=== PATIENT | female | born 1970 | race Caucasian/White ===

== ENCOUNTER → 2016-12-26 | Outpatient (CLI) | payer BC ==
[~2016-12-26] MED LIST: SERT-234 PO
[2016-12-26 13:40] VITALS: BP 94/57; PULSE 65; TEMP 36.8; O2SAT 95
--- NOTE | 2016-12-26 14:33 | Radiation Oncology Follow-Up ---
Radiation Oncology Follow-Up Date of Visit Dec 26, 2016. (Juana Lopez PA-C) Radiation Completion Date finished 07-19-2015 (Juana Lopez PA-C) Diagnosis (1) Leiomyoma of cervix Status: Resolved Onset Date: 04/05/2015 Stage: l Permanent Comment: Cervix, leiomyosarcoma, FIGO IB Abnormal Pap smear 03/17/2015 biopsy revealing leiomyoma with atypia 04/05/2015 biopsy revealing leiomyosarcoma 04/14/2015 status post total abdominal hysterectomy bilateral salpingo- oophorectomy Leiomyosarcoma of cervix only Status post completion of radiation therapy 07/19/2015 received 5040 cGy Last Edited By: Juana Lopez on Dec 28, 2016 08:22 (Juana Lopez PA-C) History of Present Illness Ms. Veloz is a 44 year old post-menopausal female who recently was found to have an abnormal pap smear and was evaluated by Dr. Mendieta. Dr. Mendieta performed a gynecological examination and found a stable left lateral smooth mass described as a polyp. This lesion was biopsied on the same day, 03/17/2015, which revealed a mitotically active leiomyoma with focal atypia. The patient was referred to Dr. Souza who evaluated the patient on 04/05/2015 and, on examination, found "mass is firm, plastic like in texture and irregular. The cervix itself is pushed posteriorly by the mass arising from the anterior ectocervix." Dr. Souza repeated a biopsy that day which revealed a leiomyosarcoma. Thepatient had a CT Abdo/Pelvis on 04/08/2015 revealed a 2.7 cm suspected cervical mass but no evidence of lymph node involvement or metastatic disease. The patient then underwent a total abdominal hysterectomy and bilateral salpingooophorectomy on 04/14/2015 which revealed leiomyosarcoma involving the cervix only. The vaginal cuff margin was negative and the radial margin adjacent to the lower uterine segment was 0.6 mm. The tumor was also noted to have lymphovascular space invasion. We are now seeing her in consultation for discussion of adjuvant radiation therapy. After reviewing the literature, we were unable to find any substantial data for management of cervical leiomyosarcomas. We did extrapolate data both from cervical cancer and endometrial sarcomas to provide the our recommendations to the patient. Based on the close radial margin, the aggressiveness of her malignance and presence of LVSI, we recommended adjuvant pelvic radiation therapy only. She completed radiation therapy in July 2015. (Juana Lopez PA-C) Interim History His been doing well over the past 6 months. She denies any change in urination. There is no change in bowel habits. She denies any vaginal discharge or bleeding. She does note that there is shortening of the vagina. This is noted while having intercourse. She denies pain with intercourse. She did see Dr. Mendieta and had a Pap smear in June that was normal. She has had follow-up examinations by Dr. Souza. She had previously had a CT scan of the chest which recommended a 6 month follow-up. That was performed in August. This showed overall there was no significant change compared to the prior study. Multiple scattered subcentimeter pulmonary nodules remain stable. These measured up to 3 mm in size. These are unlikely to represent metastatic disease given the stability and location. However continue chest CT follow-up is recommended. (Juana Lopez PA-C) Allergies Coded Allergies: No Known Allergies (Verified , 03/22/15) Home Medications Scheduled Sertraline (Zoloft), 100 MG PO QAM Review of Systems Gastrointestinal: Symptoms: WNL Oral: Symptoms: No Problems Respiratory: Symptoms: WNL Urinary: Symptoms: WNL Skin: Symptoms: No Problems Other Skin Symptoms: " dry " (Juana Lopez PA-C) Physical Exam Vital Signs Date Time Temp Pulse Resp B/P Pulse Ox O2 Delivery O2 Flow Rate FiO2 12/26/16 13:40 36.8 65 16 94/57 95 Pain: Side: Bilateral Patient Pain Scale: 0 - 10 Initial Pain Intensity: 0.0 General Appearance: no apparent distress Eyes: normal inspection, EOMI ENT: normal ENT inspection, hearing grossly normal Respiratory/Chest: lungs clear, no respiratory distress, no accessory muscle use Cardiovascular: regular rate, rhythm, no gallop, no murmur Abdomen: non tender, soft, no organomegaly Genitourinary - Female: Pelvic examination performed by Dr. Salinas. There is normal external genitalia. She has foreshortening of the vagina. It is no vaginal discharge or irritation. No telangiectasia. There were no palpable masses on bimanual examination. Extremities: no pedal edema Neurologic/Psychiatric: alert, normal mood/affect Skin: warm/dry Lymphatic: no adenopathy (Juana Lopez PA-C) Laboratory Studies Name: JULES VELOZ Age/Sex: 45/F Location: [facility] MR#: [id number] : 1970 Rm/Bed Physician: Anne Mendieta M.D. Case: [id number] Received 06/15/16 Specimen Date 06/14/16 Specimen: CERVIX/ENDOCERVIX THIN PREP LMP HYSTER GYNECOLOGICAL RESULTS DIAGNOSIS: Negative for intraepithelial Lesion or Malignancy Reactive cellular changes associated with: Inflammation (includes typical repair) ADEQUACY OF THE SPECIMEN: Satisfactory for evaluation AUTOMATED EXAMINATION: This specimen was successfully imaged by the [employer], [place], [facility]. COPIES TO Genesis Kimbrough J Frederick, M.D. Signed <signature on file> 06/16/[address] <signature on file> 05/26 Sarath Kaur M.D. (Juana Lopez PA-C) Additional Studies CHEST CT WITH CONTRAST CT DOSE: 219.05 mGycm HISTORY: Follow-up pulmonary nodules. Cervical cancer. TECHNIQUE: Multiaxial CT images of the chest were performed following the intravenous administration of contrast. COMPARISON: Chest CT 02/28/2016. FINDINGS: An 8 mm irregular density within the right lung apex on image 31 remains unchanged. This likely represents an area of scarring. No significant change in the multiple scattered subpleural nodules seen throughout the lungs. These measure up to 3 mm in size. No new or suspicious nodules identified. No pneumothorax. No pleural effusions. The central airways are patent. No suspicious lytic or blastic osseous lesions. The central pulmonary arteries are patent. No mediastinal or hilar lymphadenopathy. The visualized liver, spleen, and adrenal glands are unremarkable. IMPRESSION: 1. Overall, no significant change compared to the prior study. 2. Multiple scattered subcentimeter pulmonary nodules remain stable. These measure up to 3 mm in size. These are unlikely to represent metastatic disease given the stability and location. However, continued chest CT follow-up is recommended. Electronically signed by: Sukhwinder Contreras M.D. 08/18/2016 10:49 AM (Juana Lopez PA-C) Assessment & Plan Plan: Patient was seen and examined by Dr. Salinas. A continued regular follow- up with Dr. Mendieta and Dr. Souza. The recheck CT scans of the chest have been scheduled through Dr. Souza's office. We asked her to return to our office in 1 year. She may call if she has any questions or concerns. (Juana Lopez PA-C) I agree with note created by Juana Lopez PA-C. I reviewed the patient's chart and information with her. I have examined and evaluated the patient. I reviewed relevant clinical information and answered the patient's and/or family' s questions. (Veeral. Salinas MD) Total Time In Follow-Up I spent 20 minutes speaking to the patient about performing examination. I spent 15 minutes reviewing information and completing this note. (Juana Lopez PA-C) I spent 15 minutes examining and counseling the patient. (Veeral. Salinas MD) Copy To Genesis Kimbrough; Anne Mnedieta M.D.; Alex Souza M.D.
== END | disposition home or self-care (01) ==
LOC: C.ONC 13:24
PROVIDERS: ATTEND Physician Assistant Medical
DX: Z08 Encounter for follow-up examination after completed treatment for malignant neoplasm (principal); Z92.3 Personal history of irradiation; Z85.41 Personal history of malignant neoplasm of cervix uteri

== ENCOUNTER → 2017-01-02 | Outpatient (CLI) | payer BC ==
--- NOTE | 2017-01-03 14:34 | MAMMOGRAPHY REPORT ---
BILATERAL DIGITAL SCREENING MAMMOGRAM TOMOSYNTHESIS WITH CAD: 01/02/2017 CLINICAL HISTORY: Routine screening. Patient has no complaints. TECHNIQUE: Breast tomosynthesis in addition to standard 2D mammography was performed. Current study was also evaluated with a Computer Aided Detection (CAD) system. COMPARISON: Comparison is made to exams dated: 12/29/2015 mammogram, 12/25/2014 mammogram, 12/30/2013 mammogram, 12/18/2013 mammogram, 12/10/2012 ultrasound, and 12/10/2012 mammogram - [facility]. BREAST COMPOSITION: The tissue of both breasts is heterogeneously dense, which may obscure small ma sses. FINDINGS: There are scattered benign coarse calcifications in the breasts. A 7 mm circumscribed mas s in the lower outer left breast is unchanged mammographically dating back to at least 2010, therefo re likely benign. No suspicious spiculated or irregular mass, architectural distortion or cluster o f suspicious microcalcifications is seen. IMPRESSION: ACR BI-RADS CATEGORY 1: NEGATIVE There is no mammographic evidence of malignancy. A 1 year screening mammogram is recommended. The p atient will receive written notification of the results. Approximately 10% of breast cancers are not detected with mammography. A negative mammographic repor t should not delay biopsy if a clinically suggestive mass is present. Catarina Riley M.D. ay/:01/02/2017 18:37:59 Cloth Coverer: Isabel Tavarez, [facility] letter sent: Normal 1/2 BI-RADS Code: ACR BI-RADS Category 1: Negative
== END | disposition home or self-care (01) ==
LOC: C.MAMM 07:39
PROVIDERS: ATTEND Obstetrics & Gynecology
DX: Z12.31 Encounter for screening mammogram for malignant neoplasm of breast (principal)

== ENCOUNTER → 2017-06-15 | Outpatient (CLI) | payer BC | END | disposition home or self-care (01) | LOC: C.PAPS 11:29 | PROVIDERS: ATTEND Obstetrics & Gynecology | DX: Z01.419 Encounter for gynecological examination (general) (routine) without abnormal findings (principal); R87.615 Unsatisfactory cytologic smear of cervix ==

== ENCOUNTER → 2017-07-18 | Outpatient (CLI) | payer BC | END | disposition home or self-care (01) | LOC: C.PAPS 10:31 | PROVIDERS: ATTEND Obstetrics & Gynecology | DX: Z01.419 Encounter for gynecological examination (general) (routine) without abnormal findings (principal) ==

== ENCOUNTER → 2017-08-31 | Outpatient (CLI) | payer BC ==
[~2017-08-31] MED LIST changes: +OPTIRAY 320 IV PRN
--- NOTE | 2017-08-31 09:14 | DIAGNOSTIC IMAGING REPORT ---
(CHEST) THORAX WITH CLINICAL HISTORY: 47 years-old Female presenting with LUNG NODULE. TECHNIQUE: Multidetector CT imaging of the chest was performed after the administration of intravenous contrast. IV contrast: 93 mL of Optiray 320. A dose lowering technique was used consistent with the principles of ALARA (as low as reasonably achievable). COMPARISON: 08/18/2016. CT DOSE (mGy.cm): The estimated cumulative dose is 202.70 mGy.cm. FINDINGS: [employer] topogram: Unremarkable. On soft tissue windows, normal thyroid and thoracic inlet. Few small hilar and mediastinal lymph nodes. No pathology is enlarged lymph nodes. Trace atherosclerosis. Otherwise normal aorta. Normal heart size. No pericardial or pleural effusion. Upper abdomen normal. On lung windows, apical reticulation likely scarring, right greater than left. The peripheral/subpleural solid 3 mm nodule near the right apex is unchanged (series 4 image 59). Additional solid 2 to 3 mm nodule at the left apex is also unchanged (series 4 image 67). Perifissural 3 mm subsolid nodule in the left lower lobe is unchanged (series 4 image 120). Solid 2 mm peripheral nodule in the left lower lobe is unchanged (series 4 image 152). Subtle centrilobular groundglass nodular opacities. Mild mosaic attenuation could indicate small airways disease. Groundglass nodule along the minor fissure in the right upper lobe measuring 5 mm (series 4 image 136), new from prior. Large airways patent. On bone windows, normal osseous structures. IMPRESSION: 1. Stable appearance of the solid and subsolid pulmonary nodules measuring up to 3 mm. However, apparent new 5 mm subsolid right upper lobe nodule, although this could relate to mosaic attenuation rather than a focal nodule. 2. Subtle evidence of centrilobular groundglass nodular opacities. This could suggest smoking related lung injury/respiratory bronchiolitis in the setting of smoking or mild hypersensitivity pneumonitis if the patient is nonsmoker. Please refer to below summary of Fleischner Society 2017 recommendations for follow-up of incidental CT nodules (Abdoulaye Castillo et al. Guidelines for management of incidental pulmonary nodules detected on CT images: From the Fleischner Society 2017. Radiology 2017; 284: 228-243.) SOLID NODULES Single nodule; size < 6 mm * Low risk patients: No routine follow-up * High risk patients: Optional CT at 12 months Single nodule; size 6-8 mm * Low risk patients: CT at 6-12 months, then consider CT at 18-24 months * High risk patients: CT at 6-12 months, then at 18-24 months Single nodule; size > 8 mm * Either low or high risk patients: Considered CT at 3 months, PET/CT, or tissue sampling Multiple nodules; size < 6 mm * Low risk patients: No routine follow up * High risk patients: Optional CT at 12 months Multiple nodules; size 6-8 mm * Low risk patients: CT at 3-6 months, then consider CT at 18-24 months * High risk patients: CT at 3-6 months, then at 18-24 months Multiple nodules; size > 8 mm * Low risk patients: CT at 3-6 months, then consider at 18-24 months * High risk patients: CT at 3-6 months, then at 18-24 months Note: These guidelines apply to incidental nodules. These guidelines do not apply to patients younger than 35 years, immunocompromised patients, or patients with cancer. * Low risk patients: Minimal or absent history of smoking and/or other known risk factors * High risk patients: History of smoking, exposure to other carcinogens, emphysema, fibrosis, upper lobe location, family history of lung cancer, etc. * If a nodule up to 8 mm is partly solid or is ground glass, further follow-up is required after 24 months to exclude possible slow growing adenocarcinoma. SUBSOLID NODULES Single ground-glass nodule * Nodule size < 6 mm: No routine follow-up * Nodule size > or = 6 mm: CT at 6-12 months to confirm persistence, then CT every 2 years until 5 years Single part-solid nodule * Nodule size < 6 mm: No routine follow-up * Nodules size > or = 6 mm: CT at 3-6 months to confirm persistence. If unchanged and solid component remains < 6 mm, annual CT should be performed for 5 years Multiple nodules * Nodule size < 6 mm: CT at 3-6 months. If stable, consider CT at 2 and 4 years. * Nodules size > or = 6 mm: CT at 3-6 months. Subsequent management based on the most suspicious nodule(s) Electronically signed by: Rober Mohr M.D. 08/31/2017 9:12 AM Dictated Date/Time: 08/31/2017 9:01 AM
== END | disposition home or self-care (01) ==
LOC: C.CTS 08:35
PROVIDERS: ATTEND Obstetrics & Gynecology Gynecologic Oncology
DX: R91.8 Other nonspecific abnormal finding of lung field (principal); Z85.42 Personal history of malignant neoplasm of other parts of uterus

== ENCOUNTER → 2017-12-27 | Outpatient (CLI) | payer OTHER ==
[~2017-12-27] MED LIST changes: -OPTIRAY 320 IV PRN
[2017-12-27 14:33] VITALS: BP 95/54; PULSE 74; TEMP 36.4; O2SAT 95
--- NOTE | 2017-12-27 16:12 | Radiation Oncology Follow-Up ---
Radiation Oncology Follow-Up Date of Visit Dec 27, 2017. 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 Veloz was found to have an abnormal pap smear and was evaluated by Dr. Mendieta. Dr. Mendieta performed a gynecological examination and found a stable left lateral smooth mass described as a polyp. This lesion was biopsied on the same day, 03/17/2015, which revealed a mitotically active leiomyoma with focal atypia. The patient was referred to Dr. Souza who evaluated the patient on and, on examination, found "mass is firm, plastic like in texture and irregular. The cervix itself is pushed posteriorly by the mass arising from the anterior ectocervix." Dr. Souza repeated a biopsy that day which revealed a leiomyosarcoma. Thepatient had a CT Abdo/Pelvis on 04/08/2015 revealed a 2.7 cm suspected cervical mass but no evidence of lymph node involvement or metastatic disease. The patient then underwent a total abdominal hysterectomy and bilateral salpingooophorectomy on 04/14/2015 which revealed leiomyosarcoma involving the cervix only. The vaginal cuff margin was negative and the radial margin adjacent to the lower uterine segment was 0.6 mm. The tumor was also noted to have lymphovascular space invasion. We are now seeing her in consultation for discussion of adjuvant radiation therapy. After reviewing the literature, we were unable to find any substantial data for management of cervical leiomyosarcomas. We did extrapolate data both from cervical cancer and endometrial sarcomas to provide the our recommendations to the patient. Based on the close radial margin, the aggressiveness of her malignance and presence of LVSI, we recommended adjuvant pelvic radiation therapy only. She completed radiation therapy in July 2015. Interim History She has been doing well over this past year. She denies any vaginal discharge or irritation. She has had no vaginal bleeding. She is sexually active and denies dyspareunia. She has had no change in bowel habits or urination. She has been seen in follow-up by the gynecologic oncologist. She had previously had abnormal findings on a CT in August 2016. She did have a follow-up CT August 31, 2017. This was ordered through the gynecologic oncologist's office. Allergies Coded Allergies: No Known Allergies (Verified , 03/22/15) Home Medications Scheduled Sertraline (Zoloft), 100 MG PO QAM Review of Systems Gastrointestinal: Symptoms: WNL Oral: Symptoms: No Problems Respiratory: Symptoms: WNL Urinary: Symptoms: WNL Skin: Symptoms: No Problems Other Skin Symptoms: " dry " Physical Exam Vital Signs Date Time Temp Pulse Resp B/P (MAP) Pulse Ox O2 Delivery O2 Flow Rate FiO2 12/27/17 14:33 36.4 74 16 95/54 95 Fatigue: None General Appearance: no apparent distress Eyes: normal inspection, EOMI ENT: normal ENT inspection, hearing grossly normal Respiratory/Chest: lungs clear, no respiratory distress, no accessory muscle use Cardiovascular: regular rate, rhythm, no gallop, no murmur Abdomen: non tender, soft, no organomegaly Genitourinary - Female: external genitalia normal, + pertinent finding (Pelvic examination performed by Dr. Salinas. There is foreshortening of the vagina. There are no visible or palpable lesions of the vagina. There is no vaginal discharge or bleeding.) Extremities: no pedal edema Neurologic/Psychiatric: no motor/sensory deficits, alert, normal mood/affect Skin: warm/dry Pain Management Patient Reports Pain: No Side: Bilateral Patient Preferred Pain Scale: 0 - 10 Initial Pain Intensity: 0.0 Pain Management Plan She denies pain therefore requires no pain management. Laboratory Laboratory Results: not applicable Pathology Pathology Results: were reviewed, and pertinent findings noted in HPI Imaging Imaging Studies: were reviewed, and pertinent findings noted below Imaging Comments Patient: JULES VELOZ Address1: [address] [place] [address] Rec: [id number] Address2: Acct ID: [id number] [facility] Zip: [place] [address] Date: 1970 Sex: F Room/Bed: Ref Phy: Rogelio Morales M.D. SC: MELINDA Att Phy: Alex Souza M.D. Report #: [id number] Angie Phy: Rogelio Morales M.D. Test: CX Admit Phy: Web Design Instructor: ROSA Interpreting Phy: Rober Mohr MD Diagnosis: LUNG NODULE Ordering Phy: Alex Souza M.D. Service Date: 08/31/17 Admit Date: 08/31/17 MNE: [id number] CONF: DICTATED BY: Rober Mohr MD]] CC: Rogelio Morales M.D., Edward M.D. Endcc: [~ rep ct add3]] (CHEST) THORAX WITH CLINICAL HISTORY: 47 years-old Female presenting with LUNG NODULE. TECHNIQUE: Multidetector CT imaging of the chest was performed after the administration of intravenous contrast. IV contrast: 93 mL of Optiray 320. A dose lowering technique was used consistent with the principles of ALARA (as low as reasonably achievable). COMPARISON: 08/18/2016. CT DOSE (mGy.cm): The estimated cumulative dose is 202.70 mGy.cm. FINDINGS: Drapery Hand topogram: Unremarkable. On soft tissue windows, normal thyroid and thoracic inlet. Few small hilar and mediastinal lymph nodes. No pathology is enlarged lymph nodes. Trace atherosclerosis. Otherwise normal aorta. Normal heart size. No pericardial or pleural effusion. Upper abdomen normal. On lung windows, apical reticulation likely scarring, right greater than left. The peripheral/subpleural solid 3 mm nodule near the right apex is unchanged (series 4 image 59). Additional solid 2 to 3 mm nodule at the left apex is also unchanged (series 4 image 67). Perifissural 3 mm subsolid nodule in the left lower lobe is unchanged (series 4 image 120). Solid 2 mm peripheral nodule in the left lower lobe is unchanged (series 4 image 152). Subtle centrilobular groundglass nodular opacities. Mild mosaic attenuation could indicate small airways disease. Groundglass nodule along the minor fissure in the right upper lobe measuring 5 mm (series 4 image 136), new from prior. Large airways patent. On bone windows, normal osseous structures. IMPRESSION: 1. Stable appearance of the solid and subsolid pulmonary nodules measuring up to 3 mm. However, apparent new 5 mm subsolid right upper lobe nodule, although this could relate to mosaic attenuation rather than a focal nodule. 2. Subtle evidence of centrilobular groundglass nodular opacities. This could suggest smoking related lung injury/respiratory bronchiolitis in the setting of smoking or mild hypersensitivity pneumonitis if the patient is nonsmoker. Please refer to below summary of Fleischner Society 2017 recommendations for follow-up of incidental CT nodules (Abdoulaye Castillo et al. Guidelines for management of incidental pulmonary nodules detected on CT images: From the Fleischner Society 2017. Radiology 2017; 284: 228-243.) SOLID NODULES Single nodule; size < 6 mm * Low risk patients: No routine follow-up * High risk patients: Optional CT at 12 months Single nodule; size 6-8 mm * Low risk patients: CT at 6-12 months, then consider CT at 18-24 months * High risk patients: CT at 6-12 months, then at 18-24 months Single nodule; size > 8 mm * Either low or high risk patients: Considered CT at 3 months, PET/CT, or tissue sampling Multiple nodules; size < 6 mm * Low risk patients: No routine follow up * High risk patients: Optional CT at 12 months Multiple nodules; size 6-8 mm * Low risk patients: CT at 3-6 months, then consider CT at 18-24 months * High risk patients: CT at 3-6 months, then at 18-24 months Multiple nodules; size > 8 mm * Low risk patients: CT at 3-6 months, then consider at 18-24 months * High risk patients: CT at 3-6 months, then at 18-24 months Note: These guidelines apply to incidental nodules. These guidelines do not apply to patients younger than 35 years, immunocompromised patients, or patients with cancer. * Low risk patients: Minimal or absent history of smoking and/or other known risk factors * High risk patients: History of smoking, exposure to other carcinogens, emphysema, fibrosis, upper lobe location, family history of lung cancer, etc. * If a nodule up to 8 mm is partly solid or is ground glass, further follow-up is required after 24 months to exclude possible slow growing adenocarcinoma. SUBSOLID NODULES Single ground-glass nodule * Nodule size < 6 mm: No routine follow-up * Nodule size > or = 6 mm: CT at 6-12 months to confirm persistence, then CT every 2 years until 5 years Single part-solid nodule * Nodule size < 6 mm: No routine follow-up * Nodules size > or = 6 mm: CT at 3-6 months to confirm persistence. If unchanged and solid component remains < 6 mm, annual CT should be performed for 5 years Multiple nodules * Nodule size < 6 mm: CT at 3-6 months. If stable, consider CT at 2 and 4 years. * Nodules size > or = 6 mm: CT at 3-6 months. Subsequent management based on the most suspicious nodule(s) Electronically signed by: Rober Mohr M.D. 08/31/2017 9:12 AM Assessment & Plan Plan: Patient was seen and examined by Dr. Salinas. We reviewed with her the recheck CT that was performed in August. I also discussed this with Radha Ramirez at the pulmonary nodule clinic. Because the nodules are less than 6 mm she would not require further scanning. Because she has a history of smoking and she continues to smoke and cervical cancer we felt it prudent to have her case reviewed at the biweekly lung cancer conference. She will be notified as to the outcome and decision of any further scanning. We discussed smoke cessation. She is going to continue to try to wean off of cigarettes. She was given information about the 1 800 quit line. She was also made aware that there is a smoke cessation program available at our hospital. She will otherwise return to our office in 1 year. She may call if she has any questions or concerns. Assessment & Plan (Attending) I agree with note created by Juana Lopez PA-C. I reviewed the patient's chart and information with her. I have examined and evaluated the patient. I reviewed relevant clinical information and answered the patient's and/or family' s questions. REAL ESTATE ACQUISITION ANALYST Total Time In Follow-Up I spent 25 minutes speaking to the patient in performing examination. I spent 15 minutes reviewing information and completing this note. AK Total Time (Attending) In Follow-Up I spent 15 minutes examining and counseling the patient. REAL ESTATE ACQUISITION ANALYST Copy To Rogelio Morales M.D.; Alex Souza M.D.; Lindsey Ramirez
== END | disposition home or self-care (01) ==
LOC: C.ONC 14:20
PROVIDERS: ATTEND Physician Assistant Medical
DX: Z08 Encounter for follow-up examination after completed treatment for malignant neoplasm (principal); Z92.3 Personal history of irradiation; Z85.89 Personal history of malignant neoplasm of other organs and systems

== ENCOUNTER → 2018-01-08 | Outpatient (CLI) | payer OTHER ==
--- NOTE | 2018-01-08 15:22 | MAMMOGRAPHY REPORT ---
BILATERAL DIGITAL SCREENING MAMMOGRAM TOMOSYNTHESIS WITH CAD: 01/08/2018 CLINICAL HISTORY: Routine screening. Patient has no complaints. TECHNIQUE: Breast tomosynthesis in addition to standard 2D mammography was performed. Current study was also evaluated with a Computer Aided Detection (CAD) system. COMPARISON: Comparison is made to exams dated: 12/29/2015 mammogram, 01/02/2017 mammogram, 12/25/2014 m ammogram, 12/30/2013 mammogram, 12/18/2013 mammogram, and 12/04/2012 mammogram - [facility] enter. BREAST COMPOSITION: The tissue of both breasts is heterogeneously dense, which may obscure small mas ses. FINDINGS: A low density circumscribed 7 mm mass in the lower outer left breast appears similar dating back to at least 2010, therefore likely benign. There are a few scattered benign rim calcifications bilaterally. No suspicious mass, architectural distortion or cluster of suspicious microcalcificati ons is seen. IMPRESSION: ACR BI-RADS CATEGORY 1: NEGATIVE There is no mammographic evidence of malignancy. A 1 year screening mammogram is recommended. The pa tient will receive written notification of the results. Approximately 10% of breast cancers are not detected with mammography. A negative mammographic report should not delay biopsy if a clinically suggestive mass is present. Catarina Riley M.D. ay/:01/08/2018 15:01:36 Ladies' Hat Trimmer: Isabel PORTER(R)(M), [facility] letter sent: Normal 1/2 BI-RADS Code: ACR BI-RADS Category 1: Negative
== END | disposition home or self-care (01) ==
LOC: C.MAMM 07:24
PROVIDERS: ATTEND Obstetrics & Gynecology
DX: Z12.31 Encounter for screening mammogram for malignant neoplasm of breast (principal)